=== PATIENT | male | born 1965 ===

== ENCOUNTER 2021-08-12 06:52 | Day surgery (SDC) | payer OTHER ==
[~2021-08-12] VITALS: Ht 180.3 cm; Wt 56.7 kg
[~2021-08-12 06:52] MED LIST: INHALER; KEPPRA250 M1 PO
[2021-08-12 09:05] VITALS: BP 122/79
== END 2021-08-12 09:18 | DRG 395 ==
LOC: ENDO 06:52 → ORM 08:00 → ENDO 08:00
PROVIDERS: ATTEND Surgery
PROC: 0DJD8ZZ Inspection of Lower Intestinal Tract, Via Natural or Artificial Opening Endoscopic (ICD-10-PCS; principal; 2021-08-12)
DX: K64.8 Other hemorrhoids (principal); R63.4 Abnormal weight loss